=== PATIENT | male | born 1950 | race African-American/Black ===

== ENCOUNTER 2018-05-08 12:57 | Outpatient (CLI) | payer BC ==
--- NOTE | 2018-05-08 15:20 | Diagnostic Imaging Report ---
Indication: Cough Technique: 2 views of the chest Comparison: None Findings: Lungs are hyperinflated, as in CBD. No acute infiltrates. No definite effusions. Heart size is normal. The bones are unremarkable Impression: COPD changes No acute process
== END 2018-05-08 13:57 | disposition home or self-care (01) ==
LOC: RAD 12:57
DX: R05 Cough (principal); J44.9 Chronic obstructive pulmonary disease, unspecified; Z87.891 Personal history of nicotine dependence
CPT/HCPCS: 71046